=== PATIENT | female | born 1950 | race Caucasian/White ===

== ENCOUNTER 2019-08-12 18:23 | Observation (INO) | payer MEDICARE, SELFPAY ==
[2019-08-12] VITALS (8 sets, daily range): BP systolic 91–140; BP diastolic 58–89; PULSE 59–85; RESP 14–18; TEMP 36.7–37.1; O2SAT 94–98; BMI 27.4
--- NOTE | 2019-08-12 18:34 | ED_ITS ---
Entered by Rosetta Heck, acting as scribe for Melanie Valle MD, [place] Aug 12, 2019 18:23 HPI - Weakness General: Chief complaint: Weakness Stated complaint: DIZZINESS/ WEAKNESS Time Seen by Provider: 08/12/19 18:34 Source: patient, EMS and RN notes reviewed Mode of arrival: EMS Limitations: no limitations History of Present Illness: HPI Narrative: 69 yo female presents to ED with complaints of sudden onset weakness. The patient states this began about 1400 this afternoon. She said she had sudden onset dizziness, weakness, difficulty breathing, a headache that encompasses her head (not severe but constant), and L sided rib pain (she said it feels like a spasm). She said she was working on a [employer] when the page became totally white and she became lightheaded. She said she hadn't ate lunch so she thought maybe her symptoms were do to that so she decided to eat. She said she was tippy and everything was still white so she called her friend for help and she thought she better feed the horses and the whole time she was doing this she felt like she was floating and she fought passing out, saying it was hard to stay upright. She finally made it back to her house and just sat on the floor, waiting for her friend. She said she called her friend because she just couldn't think well enough to call the ambulance. She said if she were to sit up at this time, she would fall over because she is lightheaded and everything is too white. She said lights and sounds increase her head pain. The patient has a slight droop on the R side of her face. Complaint: generalized weakness and difficulty walking Onset (ago): hour(s) (4.75 (at 1400)) Duration: constant Associated symptoms: Reports chest pain; Denies chills, dysuria, fever(s), nausea or vomiting Review of Systems General: Reports: 10 or more systems reviewed and unremarkable except in HPI and below Const: Denies: fever, chills or body aches Eyes: Reports: blind spots; Denies: blurry vision ENMT: Denies: throat pain, enlarged tonsils, painful swallowing, hoarseness, mouth pain or swelling of lips/tongue Card: Reports: chest pain; Denies: palpitations, irregular heart rhythm, edema or swelling of feet/ankles Resp: Denies: productive cough or non-productive cough GI: Denies: abdominal pain, nausea or vomiting : Denies: flank pain, difficulty urinating, painful urination, urinary frequency, urinary urgency or urinary hesitancy Musc: Reports: extremity pain (left shoulder), joint pain (left shoulder) and limited range of motion; Denies: neck pain, back pain or extremity swelling Skin/Breast: Denies: rash, itching or redness Neuro: Denies: numbness in extremities Endo: Denies: excessive urination, excessive thirst or tired all the time PFSH ED PFSH: Statuses (acute, chronic, etc) shown below reflect problem list status as previously entered and may not be historically accurate Medical History (Updated 08/12/19 @ 21:36 by Melanie Valle MD, [place]) Cataract (Acute) Dizziness (Acute) Glaucoma (Acute) Surgical History (Updated 08/12/19 @ 21:28 by Tod Ashton MD) History of cataract surgery (Acute) Family History (Updated 08/12/19 @ 21:29 by Tod Ashton MD) Denies family history of CAD (coronary artery disease) Chronic kidney disease (CKD) Anesthesia complication Bleeding disorder Cancer Social History Smoking and tobacco status: never smoked Alcohol intake: never Substance/Drug Use: never Lives independently: Yes Housing: House Physical Exam Const: COMMON NORMALS: no apparent distress, average body habitus, oriented x3, no limitations, healthy appearing, alert and well nourished HENMT: COMMON NORMALS: normocephalic, head/scalp atraumatic and moist oral mucous membranes HEAD & SCALP: normocephalic and atraumatic Eye: COMMON NORMALS: PERRL, EOMs intact bilaterally, conjunctivae normal and no scleral icterus CONJUNCTIVA: Yes conjunctivae normal PUPIL: Yes PERRL Neck/C-Spine: COMMON NORMALS: full ROM, supple, no meningeal signs, no JVD and no carotid bruits Chest: COMMONS NORMALS: inspection of chest normal and palpation of chest normal Resp: COMMON NORMALS: normal respiratory effort, no retractions, no use of accessory muscles, clear to auscultation bilaterally and percussion normal AUSCULTATION: clear to auscultation bilaterally PERCUSSION: percussion normal Cardio: COMMON NORMALS: no JVD, regular rate, regular rhythm, S1 normal heart sound, S2 normal heart sound, no gallops, no clicks, no murmurs, no rub and peripheral pulses 2+ throughout RATE: regular rate RHYTHM: regular rhythm HEART SOUNDS: S1 normal and S2 normal PERIPHERAL PULSES: pulses 2+ throughout GI: COMMON NORMALS: normal to inspection, nondistended, normoactive bowel sounds, soft to palpation, non-tender, no hepatosplenomegaly, no masses and no bruits PALPATION: Yes soft and Yes no hepatosplenomegaly : COMMON NORMALS: Yes no CVA tenderness BLADDER/KIDNEY EXAM: Yes no CVA tenderness Back/Pelvis: COMMON NORMALS: no CVA tenderness Extremity: COMMON NORMALS: normal to inspection, full ROM, normal capillary refill, no calf tenderness and no pedal edema Neuro: COMMON NORMALS: oriented x3 SENSORIUM/ORIENTATION: Yes alert MENINGEAL SIGNS: Yes no meningeal signs OTHER: NIH 1 Skin: COMMON NORMALS: no rashes or lesions noted, no wounds, skin turgor normal, no jaundice, no petechiae and no mottling GENERAL SKIN EXAM: no rashes or lesions noted and turgor normal Course Consultations: Consultation #1: Neurologist at [facility]. Admit patient for stroke work-up. Time: 19:43 Vital Signs: Vital signs: Vital Signs Temperature 98.2 F 08/12/19 18:26 Pulse Rate 71 08/12/19 20:45 Respiratory Rate 14 08/12/19 20:45 Blood Pressure 118/73 08/12/19 20:45 Pulse Oximetry 98 08/12/19 20:45 MDM - Weakness MDM Narrative: Medical decision making narrative: 69-year-old female patient who presents to the emergency department with complaints of weakness. Symptoms started with a sudden onset about 2 PM this afternoon. By the time she arrived she was out of the window for TPA. NIH scale was low at 1. She did have difficulty walking due to probably dizziness or possibly ataxia. Gait not tested because of these. After discussion with the neurologist it was advised that the patient be kept for stroke work-up. She is therefore admitted for stroke work-up. Medical Records: Attestation: I reviewed the patient's medical records. Lab Data: Attestation: I reviewed the patient's lab results. Labs: Lab Results 08/12/19 08/12/19 08/12/19 Range/Units 17:20 17:20 17:20 WBC 4.9 (4.0-10.0) 10^3/ uL RBC 5.04 (4.1-5.3) 10^6/u L Hgb 14.3 (11.5-15.3) g/dL Hct 42.9 (37.0-47.0) % MCV 85.1 (81-99) fL MCH 28.4 (28.0-34.0) pg MCHC 33.3 (30.0-36.0) g/dL RDW 12.4 (12.1-15.1) % Plt Count 195 (130-400) 10^3/c mm MPV 12.2 H (7.4-10.4) fL Neut % (Auto) 59.2 % Lymph % (Auto) 31.6 % Carolina % (Auto) 5.7 % Eos % (Auto) 2.5 % Baso % (Auto) 0.8 % Neut # (Auto) 2.9 (1.8-7.7) 10^3/u L Lymph # (Auto) 1.5 (0.8-4.8) 10^3/u L [place] # (Auto) 0.3 (0.2-0.9) 10^3/u L Eos # (Auto) 0.1 (0.0-0.8) 10^3/u L Baso # (Auto) 0.0 (0.0-0.1) 10^3/u L Nucleated RBC % (a uto) 0 % Nucleated RBCs # 0.0 /100WBC D-Dimer <= 0.27 (0-0.59) ug/mIFE U Sodium 140 (136-145) mmol/L Potassium 3.8 (3.5-5.1) mmol/L Chloride 102 (98-107) mmol/L Carbon Dioxide 24 (22-29) mmol/L Anion Gap 17.8 (5-19) BUN 16 (8-23) mg/dL Creatinine 1.3 H (0.5-0.9) mg/dL GFR Calculation 40.6 L (90-130) mL/min Glucose 194 H (74-106) mg/dL POC Glucose (70-110) mg/dL Calcium 10.3 (8.5-10.5) mg/dL Total Bilirubin 0.4 (0.15-1.2) mg/dL AST 24 (0-32) U/L ALT 32 (0-33) U/L Alkaline Phosphata se 105 (35-105) IU/L Troponin T Baselin e (0-10) ng/mL Troponin T 120 Min thania (0-10) ng/mL Total Protein 7.6 (6.6-8.7) g/dL Albumin 4.7 (3.5-5.2) g/dL Globulin 2.9 (1.3-4.6) g/dL 08/12/19 08/12/19 08/12/19 Range/Units 17:20 19:02 20:50 WBC (4.0-10.0) 10^3/ uL RBC (4.1-5.3) 10^6/u L Hgb (11.5-15.3) g/dL Hct (37.0-47.0) % MCV (81-99) fL MCH (28.0-34.0) pg MCHC (30.0-36.0) g/dL RDW (12.1-15.1) % Plt Count (130-400) 10^3/c mm MPV (7.4-10.4) fL Neut % (Auto) % Lymph % (Auto) % Carolina % (Auto) % Eos % (Auto) % Baso % (Auto) % Neut # (Auto) (1.8-7.7) 10^3/u L Lymph # (Auto) (0.8-4.8) 10^3/u L [place] # (Auto) (0.2-0.9) 10^3/u L Eos # (Auto) (0.0-0.8) 10^3/u L Baso # (Auto) (0.0-0.1) 10^3/u L Nucleated RBC % (a uto) % Nucleated RBCs # /100WBC D-Dimer (0-0.59) ug/mIFE U Sodium (136-145) mmol/L Potassium (3.5-5.1) mmol/L Chloride (98-107) mmol/L Carbon Dioxide (22-29) mmol/L Anion Gap (5-19) BUN (8-23) mg/dL Creatinine (0.5-0.9) mg/dL GFR Calculation (90-130) mL/min Glucose (74-106) mg/dL POC Glucose 114 (70-110) mg/dL Calcium (8.5-10.5) mg/dL Total Bilirubin (0.15-1.2) mg/dL AST (0-32) U/L ALT (0-33) U/L Alkaline Phosphata se (35-105) IU/L Troponin T Baselin e 9 (0-10) ng/mL Troponin T 120 Min thania 7.84 (0-10) ng/mL Total Protein (6.6-8.7) g/dL Albumin (3.5-5.2) g/dL Globulin (1.3-4.6) g/dL Imaging Data^: CT Head: Radiologist's impression: [place] [address] CT Scan Report Signed Patient: MAAME REES Unit #: [id number] : 1950 Age/Sex: 69 / F ADM Date: 08/12/19 Loc: ER Room/Bed: Attending Dr: Ordering Provider/Ordering MD: Melanie Valle MD, [place] Date of Service: 08/12/19 Procedure(s): CT head wo con* [id number] Accession Number(s): [id number] Report Number: [id number] PROCEDURE INFORMATION: Exam: CT Head Without Contrast Exam date and time: 08/12/2019 7:08 PM Age: 69 years old Clinical indication: Dizziness TECHNIQUE: Imaging protocol: Computed tomography of the head without contrast. Total DLP: 835.73 mGy-cm Radiation optimization: All CT scans at this facility use at least one of these dose optimization techniques: automated exposure control; mA and/or kV adjustment per patient size (includes targeted exams where dose is matched to clinical indication); or iterative reconstruction. Other technique: STROKE PROTOCOL was implemented. COMPARISON: No relevant prior studies available. FINDINGS: Brain: Mild volume loss and white matter disease are identified. There is no acute infarct or edema. No hemorrhage. Ventricles: Normal. No ventriculomegaly. Bones/joints: Unremarkable. No acute fracture. Sinuses: Visualized sinuses are unremarkable. No fluid levels. Mastoid air cells: Visualized mastoid air cells are well aerated. Soft tissues: Unremarkable. CT/CT head wo con* [id number] IMPRESSION: There are no acute concerning abnormalities. ASSESSMENT: ASPECTS ([place] Stroke Program Early CT Score) is 10 THIS REPORT CONTAINS FINDINGS THAT MAY BE CRITICAL TO PATIENT CARE. The findings were verbally communicated via telephone conference with MELANIE VALLE at 7:40 PM DISCHARGING MACHINE OPERATOR on 08/12/2019. The findings were acknowledged and understood. Radiation Dose CTDIVOL = (mGy): DLP = 835.73 (mGy-cm) Dictated By: Radha Lee MD Signed By: Radha Lee MD Signed Date/Time: 08/12/191940 DD/ EKG Data^: EKG 1: Attestation: I personally reviewed and interpreted this EKG as follows: EKG interpretation date: 08/12/19 EKG interpretation time: 19:07 Prior EKG tracings: not available for review Interpretation: Normal sinus rhythm. Heart rate 75. No ST segment changes. Normal axis. EKG 2: Attestation: I personally reviewed and interpreted this EKG as follows: EKG interpretation date: 08/12/19 EKG interpretation time: 21:21 Prior EKG tracings: available for review Interpretation: Normal sinus rhythm. Heart rate 76. Normal axis. No ST changes. Discharge Plan Discharge Patient Disposition: Placed in Observation Admit Provider: Tod Ashton Clinical Impression: TIA (transient ischemic attack) Condition: Stable Coding Level of Care Code ED Representative Personal Service for Chg Fwd Exam Problem Focused The documentation recorded by the Maria R machado Valerie R, accurately reflects the service I personally performed and the decisions made by Jazmyn tidwell Adegoke I, MD, [place] Aug 12, 2019 18:23
--- NOTE | 2019-08-12 18:38 | CTR_ITS ---
PROCEDURE INFORMATION: Exam: CT Head Without Contrast Exam date and time: 08/12/2019 7:08 PM Age: 69 years old Clinical indication: Dizziness TECHNIQUE: Imaging protocol: Computed tomography of the head without contrast. Total DLP: 835.73 mGy-cm Radiation optimization: All CT scans at this facility use at least one of these dose optimization techniques: automated exposure control; mA and/or kV adjustment per patient size (includes targeted exams where dose is matched to clinical indication); or iterative reconstruction. Other technique: STROKE PROTOCOL was implemented. COMPARISON: No relevant prior studies available. FINDINGS: Brain: Mild volume loss and white matter disease are identified. There is no acute infarct or edema. No hemorrhage. Ventricles: Normal. No ventriculomegaly. Bones/joints: Unremarkable. No acute fracture. Sinuses: Visualized sinuses are unremarkable. No fluid levels. Mastoid air cells: Visualized mastoid air cells are well aerated. Soft tissues: Unremarkable. CT/CT head wo con* [id number] IMPRESSION: There are no acute concerning abnormalities. ASSESSMENT: ASPECTS ([place] Stroke Program Early CT Score) is 10 THIS REPORT CONTAINS FINDINGS THAT MAY BE CRITICAL TO PATIENT CARE. The findings were verbally communicated via telephone conference with BOOM VALLE at 7:40 PM CIRCUIT BOARD INSPECTOR on 08/12/2019. The findings were acknowledged and understood. Radiation Dose CTDIVOL = (mGy): DLP = 835.73 (mGy-cm)
--- NOTE | 2019-08-12 18:46 | ECG_ITS ---
Measurements Intervals [place] Rate: 75 P: 60 [place]: 164 QRS: 65 QRSD: 94 T: 40 QT: 387 QTc: 433 SINUS RHYTHM NONSPECIFIC T-WAVE ABNORMALITY No previous ECG available for comparison Electronically Signed On 08-13-2019 15:53:04 OPERATIONS SCHEDULER by Philip Lincoln M.D. [email or web address]
--- NOTE | 2019-08-12 19:02 | PC.NURSE ---
blood glucose 114
[2019-08-12 19:05] LABS: Glucose Point of Care 114 mg/dL (70-110)
[2019-08-12 19:06] LABS: Basophils % 0.8 %; Eosinophils # 0.1 10^3/uL (0.0-0.8); Eosinophils % 2.5 %; Hematocrit 42.9 % (37.0-47.0); Hemoglobin 14.3 g/dL (11.5-15.3); Lymphocytes # 1.5 10^3/uL (0.8-4.8); Lymphocytes % 31.6 %; Mean Corpuscular HGB Conc 33.3 g/dL (30.0-36.0); Mean Corpuscular Hemoglobin 28.4 pg (28.0-34.0); Mean Corpuscular Volume 85.1 fL (81-99); Mean Platelet Volume 12.2 fL (7.4-10.4); Monocytes # 0.3 10^3/uL (0.2-0.9); Monocytes % 5.7 %; Neutrophils # 2.9 10^3/uL (1.8-7.7); Neutrophils % 59.2 %; Nucleated Red Blood Cells % 0 %; Platelet Count 195 10^3/cmm (130-400); Red Blood Count 5.04 10^6/uL (4.1-5.3); Red Cell Distribution Width 12.4 % (12.1-15.1); White Blood Count 4.9 10^3/uL (4.0-10.0)
--- NOTE | 2019-08-12 19:10 | PC.NURSE ---
Report received from NICOL Avila and care transferred to NICOL Rubin
--- NOTE | 2019-08-12 19:24 | PC.NURSE ---
EKG done at 1907 and shown to ER doctor
[2019-08-12 19:30] LABS: Alanine Aminotransferase 32 U/L (0-33); Albumin Level 4.7 g/dL (3.5-5.2); Alkaline Phosphatase 105 IU/L (35-105); Anion Gap 17.8 (5-19); Aspartate Amino Transferase 24 U/L (0-32); Blood Urea Nitrogen 16 mg/dL (8-23); Calcium 10.3 mg/dL (8.5-10.5); Carbon Dioxide 24 mmol/L (22-29); Chloride 102 mmol/L (98-107); Globulin 2.9 g/dL (1.3-4.6); Glomerular Filtration Rate 40.6 mL/min (90-130); Glucose 194 mg/dL (74-106); Potassium 3.8 mmol/L (3.5-5.1); Sodium 140 mmol/L (136-145); Total Bilirubin 0.4 mg/dL (0.15-1.2); Total Protein 7.6 g/dL (6.6-8.7)
[2019-08-12 19:32] LABS: Troponin(5th) Baseline 9 ng/mL (0-10)
--- NOTE | 2019-08-12 20:40 | CTR_ITS ---
PROCEDURE INFORMATION: Exam: CT Angiography Head With Contrast Exam date and time: 08/12/2019 8:45 PM Age: 69 years old Clinical indication: Pain; Dizziness and giddiness; Headache; Additional info: Stroke TECHNIQUE: Imaging protocol: Computed tomography angiography of the head with intravenous contrast. 3D rendering: MIP and/or 3D reconstructed images were created by the technologist. Total DLP: 2321.94 mGy-cm Radiation optimization: All CT scans at this facility use at least one of these dose optimization techniques: automated exposure control; mA and/or kV adjustment per patient size (includes targeted exams where dose is matched to clinical indication); or iterative reconstruction. Contrast material: VISI; Contrast volume: 95 ml; Contrast route: 20G; COMPARISON: CT head wo con* [id number] 08/12/2019 7:23 PM FINDINGS: Right internal carotid artery: Unremarkable. Intracranial segment is patent with no significant stenosis. No aneurysm. Right anterior cerebral artery: Unremarkable. No occlusion or significant stenosis. No aneurysm. Right middle cerebral artery: Unremarkable. No occlusion or significant stenosis. No aneurysm. Right posterior cerebral artery: Unremarkable. No occlusion or significant stenosis. No aneurysm. Right vertebral artery: Unremarkable. No occlusion or significant stenosis. No aneurysm. Left internal carotid artery: Unremarkable. Intracranial segment is patent with no significant stenosis. No aneurysm. Left anterior cerebral artery: Unremarkable. No occlusion or significant stenosis. No aneurysm. Left middle cerebral artery: Unremarkable. No occlusion or significant stenosis. No aneurysm. Left posterior cerebral artery: Unremarkable. No occlusion or significant stenosis. No aneurysm. Left vertebral artery: Unremarkable. No occlusion or significant stenosis. No aneurysm. Basilar artery: Unremarkable. No occlusion or significant stenosis. No aneurysm. IMPRESSION: No acute findings. PROCEDURE INFORMATION: Exam: CT Angiography Neck With Contrast Exam date and time: 08/12/2019 8:45 PM Age: 69 years old Clinical indication: Pain; Dizziness and giddiness; Headache; Additional info: Stroke TECHNIQUE: Imaging protocol: Computed tomography angiography of the neck with intravenous contrast. 3D rendering: MIP and/or 3D reconstructed images were created by the technologist. Total DLP: 2321.94 mGy-cm Radiation optimization: All CT scans at this facility use at least one of these dose optimization techniques: automated exposure control; mA and/or kV adjustment per patient size (includes targeted exams where dose is matched to clinical indication); or iterative reconstruction. Contrast material: VISI; Contrast volume: 95 ml; Contrast route: 20G; COMPARISON: CT head wo con* [id number] 08/12/2019 7:23 PM FINDINGS: VASCULATURE: Right common carotid artery: Unremarkable. No stenosis. No dissection or occlusion. Right internal carotid artery: Unremarkable extracranial segment. No stenosis. No dissection or occlusion. Right external carotid artery: Unremarkable. No occlusion or stenosis of the origin. Right vertebral artery: Unremarkable. No stenosis. No dissection or occlusion. Left common carotid artery: Unremarkable. No stenosis. No dissection or occlusion. Left internal carotid artery: Unremarkable extracranial segment. No stenosis. No dissection or occlusion. Left external carotid artery: Unremarkable. No occlusion or stenosis of the origin. Left vertebral artery: Unremarkable. No stenosis. No dissection or occlusion. NECK: Thyroid: Multiple thyroid nodules with the largest measuring 9 mm in the right thyroid lobe. Bones/joints: No acute fracture. Soft tissues: Normal. No significant soft tissue swelling. CT/CT angio headneck* [id number] IMPRESSION: No acute abnormality. COMMENT: 1. Reference per NASCET criteria for degree of stenosis: Mild: less than 50% stenosis. Moderate: 50-69% stenosis. Severe: 70-94% stenosis. Near occlusion: 95-99% stenosis. 2. Consistent with the [employer]'s Incidental Findings Committee white paper (J Am Sebastián Radiol 2015): In patients aged 35 years and older with an incidental thyroid nodule equal to or greater than 1.[address], MRI or extrathyroidal US, further evaluation with dedicated thyroid US is recommended for patients with normal life expectancy and without comorbidities. For smaller nodules without suspicious features, no further evaluation or follow up is recommended. Radiation Dose CTDIVOL = (mGy): DLP = 2321.94~2321.94 (mGy-cm)
[2019-08-12] MEDS: diphenhydrAMINE 50 mg/mL SDV 1mL 25 MG IVP (20:43)
--- NOTE | 2019-08-12 20:43 | P.HP_ITS ---
Providers/Chief Complaint Chief Complaint: TIA History of Present Illness MAAME REES is a 69 year old female who does not have any pertinent past medical history other than cataract and glaucoma came in with chief complaint of dizziness. Patient has lived a healthy life, she does not have any past medical history of hypertension, diabetes, stroke, coronary disease, she lives independently, she moved from [place] to [place], she does not have any other family members, she lives alone and takes care of her 3 horses. She was at her usual health until today around 2 PM she started experiencing white blotches in her visual field when she was doing sudoku. She started feeling diz zy at that time, she ate a sandwich which did not relieve her symptoms then she started feeling weak in her arm she got out to take her for horses but she had no strength hence she called her friends who brought her to the hospital. She did not notice any facial droop, drooling of saliva, confusion, seizures, bowel or urinary incontinence, chest pain, palpitations but she is endorsing to feeling dizzy on changing position, she is also experiencing headache around her occipital area which she is describing as a weird feeling. Patient is stating that last summer she was put on Holter monitor because of her dizziness, Holter monitor after 48 hours did not show any arrhythmia. She has been having these dizzy spells pretty frequently. In the ER code stroke was called, she was not a TPA candidate, CT head was negative for hemorrhagic stroke, NIH score was 1 for mild right-sided facial droop By the time I saw her her heart rate was 70, sinus rhythm, saturating well on room air, NIH 0 She got out of bed and went to the bathroom, she was taking small steps but no weakness of her legs was noticed, I did not notice any facial droop I ordered CTA head and neck to rule out any ischemic etiology because of her active headache and dizziness Review of Systems Const: Reports: fatigue and malaise; Denies: fever, chills or body aches Eyes: Reports: change in vision, blurry vision, floaters and seeing flashes; Denies: eye discharge or dry eyes ENMT: Denies: throat pain or uvular edema Card: Denies: chest pain or palpitations Resp: Denies: shortness of breath GI: Denies: abdominal pain : Denies: flank pain Musc: Denies: neck pain Skin/Breast: Denies: rash Neuro: Reports: headache, weakness in extremities, dizziness and vertigo; Denies: lack of coordination, difficulty walking, frequent falls, confusion, slurred speech, seizure-like activity or restless legs Psych: Denies: anxiety Endo: Denies: excessive urination Samy/Lymph: Denies: easy bruising All/Imm: Denies: hives PFSH Acute PFSH: Statuses (acute, chronic, etc) shown below reflect problem list status as previously entered and may not be historically accurate Medical History (Updated 08/12/19 @ 21:32 by Tod Ashton MD) Cataract (Acute) Dizziness (Acute) Glaucoma (Acute) Surgical History (Updated 08/12/19 @ 21:28 by Tod Ashton MD) History of cataract surgery (Acute) Family History (Updated 08/12/19 @ 21:29 by Tod Ashton MD) Denies family history of CAD (coronary artery disease) Chronic kidney disease (CKD) Anesthesia complication Bleeding disorder Cancer Social History (Updated 08/12/19 @ 21:29 by Tod Ashton MD) Smoking and tobacco status: never smoked Alcohol intake: never Substance/Drug Use: never Lives independently: Yes Housing: House Vitals/I&O/Wt Last Vital Signs Temp 98.2 F 08/12/19 18:26 Pulse 74 08/12/19 19:30 Resp 14 08/12/19 19:30 BP 117/65 08/12/19 19:30 Pulse Ox 98 08/12/19 19:30 Weight last 48 hrs Weight 77.111 kg Physical Exam Narrative: EXAM NARRATIVE: Pleasant elderly female Seems a bit dehydrated Neurologically NIH score is 0, strength 4/ 5 lower extremities with hip flexion and extension, dorsi flexion and plantar flexion, Cerebellar signs negative, Reflexes equivocal Motor strength in arms 3/5, bilaterally She was able to get out of bed and walk to the bathroom, she was taking steps carefully Bilateral hyperemic conjunctivo- S1, S2 no murmur or JVD noted Lungs are clear to auscultation Abdomen soft nontender nondistended Appropriate mood and affect Skin does not show any sign ischemia gangrene ulcer Data : 08/12/19 17:20 08/12/19 17:20 A&P Assessment and plan (1) Generalized weakness: Status: Acute Code(s): R53.1 - Weakness (2) Pre-syncope: Status: Acute Code(s): R55 - Syncope and collapse (3) Blurry vision: Status: Acute Code(s): H53.8 - Other visual disturbances Additional A&P Information Acute onset generalized weakness with dizziness and visual changes Patient does not have any history of carotid artery disease, A. fib, diabetes or hypertension CT head negative for hemorrhagic stroke Not a candidate of TPA I will get CTA head and neck on stat basis because of her persistent dizziness and headache, monitor heart rhythm on telemetry I would start her on aspirin and Plavix for at least 21 days with high-dose statins We will check echo, TSH, lipid profile and A1c She will need physical therapy to rule out BPPV She lives alone and does not have any family members, only contact information is of her friends who are assisting her with her current situation She has a history of cataract and glaucoma, does not use any ophthalmic drops She might need ophthalmology consult in a.m. She sees Dr. Bernal DVT prophylaxis: Lovenox GI prophylaxis: Not indicated Full code She prefers to go to a [place] [facility] [place] if that is the discharge disposition plan Attestations Medical Necessity Statement*: Anticipating her stay to be less than 2 midnights for stroke work-up, she might need subacute rehab Time Spent in Patient Care: (>than 50% of time spent in counselling and/or direct pt care on unit) . 60 Coding Level of Care Code Acute Renal Medicine Specialist for Lainey Castillo Diagnoses Generalized weakness R53.1 Pre-syncope R55 Blurry vision H53.8
[2019-08-12] MEDS: metoclopramide 5 mg/mL SDV 2 mL 10 MG IVP (20:44)
--- NOTE | 2019-08-12 20:46 | ECG_ITS ---
Measurements Intervals [place] Rate: 76 P: 55 MN: 166 QRS: 60 QRSD: 101 T: 45 QT: 409 QTc: 461 SINUS RHYTHM No previous ECG available for comparison Electronically Signed On 08-13-2019 15:57:11 BANJO REPAIRER by Philip Lincoln M.D. [id number]
[2019-08-12 20:48] LABS: D Dimer <= 0.27 ug/mIFEU (0-0.59)
--- NOTE | 2019-08-12 21:03 | PC.NURSE ---
Patient ambulated to bathroom with 1 nurse assist. Patient was able to walk on own with minimal assistance
[2019-08-12] MEDS: iodixanol 320 mg/mL 100mL Btl IV (21:09)
--- NOTE | 2019-08-12 21:20 | PC.NURSE ---
EKG done at 0917 and shown to ER doctor
[2019-08-12 21:27] LABS: Troponin 5 2HR 7.84 ng/mL (0-10)
[2019-08-12 21:31] LABS: Troponin 5 2HR Delta -1.16 ABS# (0-10)
[2019-08-12 21:35] LABS: Add Urine Microscopic? YES; Bilirubin Urine Neg (NEGATIVE); Blood Urine Neg (Negative); Glucose Urine UA Norm (Normal); Ketones Urine Negative (Negative); Leukocyte Esterase Urine Negative (Negative); Nitrate Urine Positive (Negative); Protein Urine Neg (Negative); Urine Appearance Hazy (CLEAR); Urine Color Yellow (Yellow); Urobilinogen Urine Norm (Negative); pH Urine 7 (5-7)
[2019-08-12 21:36] LABS: Add Urine Culture? Yes; Bacteria Urine 4+; Squamous Epithelial Cell Urine 0-4 (0-5); WBC Urine 0-4 /hpf (0-5)
[2019-08-12] MEDS: sodium chloride 0.9% 1,000 ML 30 ML IV (22:23)
[2019-08-12] MEDS: enoxaparin 40 mg/0.4 mL Syringe SUBCUT (22:24)
[2019-08-12] MEDS: atorvastatin 40 mg Tablet 80 MG PO (22:24)
[2019-08-12 22:41] LABS: Chol HDL Ratio 3.95 mg/dL (0.0-4.40); Cholesterol 217 mg/dL (0-200); HDL Cholesterol 55 mg/dL (60-100); LDL Cholesterol Calculated 145 mg/dL (50-129); LDL HDL Ratio 2.64 RATIO (0.00-3.22); Thyroid Stimulating Hormone 4.97 uIU/mL (0.27-4.20); Triglycerides 86 mg/dL (0-150)
[2019-08-12 22:47] LABS: Estmated Average Glucose 120; Hemoglobin A1C 5.8 % (4.0-6.0)
--- NOTE | 2019-08-12 22:54 | PC.NURSE ---
Pt alert and oriented no defiects note pt friend at bs reports no changes at this time. Neuro check within normal limits.
[2019-08-13 00:20] LABS: Free T4 Free Thyroxine 1.14 ng/dL (0.82-1.77)
--- NOTE | 2019-08-13 00:46 | ECG_ITS ---
Measurements Intervals [place] Rate: 62 P: 49 FL: 171 QRS: 53 QRSD: 101 T: 33 QT: 432 QTc: 439 SINUS RHYTHM LOW QRS VOLTAGE IN PRECORDIAL LEADS [QRS DEFLECTION < 1.0 mV IN CHEST LEADS] No previous ECG available for comparison Electronically Signed On 08-13-2019 15:57:31 REFUSE COLLECTOR by Philip Lincoln M.D. [id number]
[2019-08-13 01:43] VITALS: BP 98/60
[2019-08-13 04:00] VITALS: BP 99/63; PULSE 65; RESP 18; TEMP 36.7; O2SAT 97
[2019-08-13 04:12] LABS: Basophils % 0.7 %; Eosinophils # 0.1 10^3/uL (0.0-0.8); Eosinophils % 1.8 %; Hematocrit 39.6 % (37.0-47.0); Hemoglobin 12.8 g/dL (11.5-15.3); Lymphocytes # 1.5 10^3/uL (0.8-4.8); Lymphocytes % 32.2 %; Mean Corpuscular HGB Conc 32.3 g/dL (30.0-36.0); Mean Corpuscular Hemoglobin 29.2 pg (28.0-34.0); Mean Corpuscular Volume 90.2 fL (81-99); Monocytes # 0.3 10^3/uL (0.2-0.9); Monocytes % 5.8 %; Neutrophils # 2.7 10^3/uL (1.8-7.7); Neutrophils % 59.3 %; Nucleated Red Blood Cells % 0 %; Platelet Count 167 10^3/cmm (130-400); Red Blood Count 4.39 10^6/uL (4.1-5.3); Red Cell Distribution Width 12.4 % (12.1-15.1); White Blood Count 4.5 10^3/uL (4.0-10.0)
[2019-08-13 04:40] LABS: Blood Urea Nitrogen 15 mg/dL (8-23); Calcium 9.4 mg/dL (8.5-10.5); Carbon Dioxide 25 mmol/L (22-29); Chloride 108 mmol/L (98-107); Glomerular Filtration Rate 44.5 mL/min (90-130); Glucose 99 mg/dL (74-106); Osmolality Calculated 292 mOsm/kg (285-295); Sodium 143 mmol/L (136-145)
[2019-08-13 08:00] VITALS: BP 118/62; PULSE 63; RESP 16; TEMP 36.4
[2019-08-13] MEDS: acetaminophen 325 mg Tablet 650 MG PO (08:50)
[2019-08-13] MEDS: aspirin 81 mg EC Tablet PO (08:51)
[2019-08-13] MEDS: clopidogrel 75 mg Tablet PO (08:51)
[2019-08-13 10:00] VITALS: BP 122/68; PULSE 79; RESP 18; TEMP 36.6
[2019-08-13 12:00] VITALS: BP 114/68; BP 116/74; PULSE 71; RESP 16; TEMP 36.7; TEMP 36.8
--- NOTE | 2019-08-13 12:47 | PC.CHAP ---
Pastoral Care Encounter/Spiritual Assessment Type of Contact [] Declined energy specialist visit [] Patient/Family/Request visit [] Outpatient visit [] Follow-up visit [] Physician referral [] Code/Alert []x Routine visit [] Staff referral [] Actively dying [] Patient sleeping [] Family support [] [] Out of room [] Palliative care [] [] Receiving care in room [] Pre-surgical visit [] Trauma [] Long length of stay [] ICU visit [] Other: Relational/Emotional Strength [x]x Patient feels connected with others/family/visitors/staff [] Distress [] Loneliness/isolation [] Abandonment Spirituality of Patient [x] Person of [place] [x] Attends Samaritan of their [place] [] Believes in Prayer [] Reads Bible or Cheondoism materials [] There are Spiritual issues to be addressed 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 [x] Prayer [x] Active listening [x] Non-anxious presence [] Spiritual/emotional support [] Crisis/trauma care [] Spiritual counseling [] Bereavement support [] Provided bereavement packet [] Provided Bible/devotional materials [] Provided toy/stuffed animal, coloring book to patient or family member [] Provided Communion [] Anointing/[place] [] Salvation [x] Completed spiritual assessment [] Other: Impact on Illness or Injury [] Angry [] Fearful [x] Anxious [] Often cries [] Exhaustion [] Unable to work [] Unable to attend evangelical [] Unable to walk/stand [] Unable to read [] Unable to drive [] Unable to eat/drink [] Unable to sleep [] Unable to be with family [] Patient intubated [] Other: Summary patient not feeling wellon visitor Time spent with patient
--- NOTE | 2019-08-13 12:57 | PC.CHAP ---
Pastoral Care Encounter/Spiritual Assessment Type of Contact [] Declined loan specialist visit [] Patient/Family/Request visit [] Outpatient visit [] Follow-up visit [] Physician referral [] Code/Alert [x] Routine visit [] Staff referral [] Actively dying [] Patient sleeping [] Family support [] [] Out of room [] Palliative care [] [] Receiving care in room [] Pre-surgical visit [] Trauma [] Long length of stay [] ICU visit [] Other: Relational/Emotional Strength [] Patient feels connected with others/family/visitors/staff [] Distress [] Loneliness/isolation [] Abandonment Spirituality of Patient [x] Person of [place] [x] Attends Mandaen of their [place] [x] Believes in Prayer [] Reads Bible or Roman Catholic materials [] There are Spiritual issues to be addressed 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 [x] Prayer [x] Active listening x[] Non-anxious presence [x] Spiritual/emotional support [] Crisis/trauma care [] Spiritual counseling [] Bereavement support [] Provided bereavement packet [] Provided Bible/devotional materials [] Provided toy/stuffed animal, coloring book to patient or family member [] Provided Communion [] Anointing/[place] [] Salvation [x] Completed spiritual assessment [] Other: Impact on Illness or Injury [] Angry [] Fearful [] Anxious [] Often cries [] Exhaustion [] Unable to work [] Unable to attend muslim [] Unable to walk/stand [] Unable to read [] Unable to drive [] Unable to eat/drink [] Unable to sleep [] Unable to be with family [] Patient intubated [] Other: Summary patient felling much better today Time spent with patient 10 min one visitor
[2019-08-13 14:57] VITALS: BP 116/74; PULSE 71; RESP 16; TEMP 36.7
--- NOTE | 2019-08-13 15:30 | P.DS_ITS ---
Discharge Providers Date of Admission: 08/12/19 20:43 Date of Discharge: 08/13/19 Attending Provider at Admission: Tod Ashton MD Attending Provider at Discharge: Mark Painter MD Diagnoses at Discharge Discharge Diagnosis (1) Generalized weakness: Status: Acute (2) Pre-syncope: Status: Acute (3) Blurry vision: Status: Acute Reason for Visit Reason for Visit: Reason For Visit: TIA Hospital Course Discharge Summary: MAAME REES is a 69 year old female who does not have any pertinent past medical history other than cataract and glaucoma came in with chief complaint of dizziness. Patient has lived a healthy life, she does not have any past medical history of hypertension, diabetes, stroke, coronary disease, she lives independently, she moved from [place] to [place], she does not have any other family members, she lives alone and takes care of her 3 horses. She was at her usual health until today around 2 PM she started experiencing white blotches in her visual field when she was doing sudoku. She started feeling dizzy at that time, she ate a sandwich which did not relieve her symptoms then she started feeling weak in her arm she got out to take her for horses but she had no strength hence she called her friends who brought her to the hospital. She did not notice any facial droop, drooling of saliva, confusion, seizures, bowel or urinary incontinence, chest pain, palpitations but she is endorsing to feeling dizzy on changing position, she is also experiencing headache around her occipital area which she is describing as a weird feeling. Patient is stating that last summer she was put on Holter monitor because of her dizziness, Holter monitor after 48 hours did not show any arrhythmia. She has been having these dizzy spells pretty frequently. She states she did have dizzy spells with floaters in front of her eyes along with flashing lights whenever she uses her glaucoma medications which she has not been using for last 3 months. She also states that occasionally she would have dizzy spells when she is trying to look into light for trying to concentrate on looking at something. She was admitted to the hospital for a possible TIA. CT head along with CTA head and neck were done which were unremarkable other than multiple thyroid nodules. Thyroid ultrasound was done and has been recommended for her to follow-up with a repeat thyroid ultrasound in 12 months. Patient was seen by physical therapy and she did review the with them. She seemed independent as per physical therapy. Her telemetry was unremarkable and echocardiogram was done as well. Her blood work was concerning for mildly deranged TSH and lipid panel for which free T4 was added which came back normal and she has been discharged upon low-dose of statin. Patient is being discharged home in hemodynamically stable condition at baseline neurological status without having any further dizziness and has been asked to follow-up with her post tronic machine operator for further glaucoma medications. Patient has been counseled to use her glaucoma medications at least at nighttime before she goes to bed as that would prevent her from having dizziness. Physical Exam Narrative: EXAM NARRATIVE: Pleasant elderly female Neurologically NIH score is 0, strength 4/ 5 lower extremities with hip flexion and extension, dorsi flexion and plantar flexion, Cerebellar signs negative, Reflexes equivocal Motor strength in arms 3/5, bilaterally She was able to get out of bed and walk to the bathroom, she was taking steps carefully Bilateral hyperemic conjunctivo- S1, S2 no murmur or JVD noted Lungs are clear to auscultation Abdomen soft nontender nondistended Appropriate mood and affect Skin does not show any sign ischemia gangrene ulcer HENMT: THROAT: no uvular edema Discharge Data Data Completed and Pending: Completed Studies During Hospitalization Category Date Time Status CT angio headneck * [id number] Stat Cat Scan 08/12/19 20:[address] head wo con* 7 0450 Urgent Cat Scan 08/12/19 18:38 Completed US thyroid 30600 Routine Ultrasound 08/13/19 23:29 Completed Pending at discharge Category Date Time Status Urine Culture Sta t Lab 08/12/19 21:00 Received CV echo complete* [id number] Routine Ultrasound 08/13/19 22:05 Taken Labs from last 24 hours 08/13/19 08/13/19 08/13/19 03:15 03:15 00:47 WBC 4.5 RBC 4.39 Hgb 12.8 Hct 39.6 MCV 90.2 D MCH 29.2 MCHC 32.3 RDW 12.4 Plt Count 167 MPV 12.0 H Neut % (Auto) 59.3 Lymph % (Auto) 32.2 Granite % (Auto) 5.8 Eos % (Auto) 1.8 Baso % (Auto) 0.7 Neut # (Auto) 2.7 Lymph # (Auto) 1.5 Granite # (Auto) 0.3 Eos # (Auto) 0.1 Baso # (Auto) 0.0 Nucleated RBC % (a uto) 0 Nucleated RBCs # 0.0 D-Dimer Sodium 143 Potassium 4.0 Chloride 108 H Carbon Dioxide 25 Anion Gap 14.0 BUN 15 Creatinine 1.2 H GFR Calculation 44.5 L Glucose 99 POC Glucose Estimat Average Gl ucose Hemoglobin A1c Calculated Osmolal ity 292 Calcium 9.4 Total Bilirubin AST ALT Alkaline Phosphata se Troponin I 6 Hour 8.00 Troponin I Hi Sens Del -1.00 L Troponin T Baselin e Troponin T 120 Min [place] Troponin T Total Protein Albumin Globulin Triglycerides Cholesterol LDL Cholesterol, C alc HDL Cholesterol LDL/HDL Ratio Cholesterol/HDL Ra jean marie TSH Free T4 Urine Color Urine Appearance Urine pH Ur Specific Gravit y Urine Protein Urine Glucose (UA) Urine Ketones Urine Occult Blood Urine Nitrate Urine Bilirubin Urine Urobilinogen Ur Leukocyte Lindsey ase Urine RBC Urine WBC Ur Squamous Epith Cells Urine Bacteria 08/12/19 08/12/19 08/12/19 21:00 20:50 20:50 WBC RBC Hgb Hct MCV MCH MCHC RDW Plt Count MPV Neut % (Auto) Lymph % (Auto) Gran[place] % (Auto) Eos % (Auto) Baso % (Auto) Neut # (Auto) Lymph # (Auto) [place] # (Auto) Eos # (Auto) Baso # (Auto) Nucleated RBC % (a uto) Nucleated RBCs # D-Dimer Sodium Potassium Chloride Carbon Dioxide Anion Gap BUN Creatinine GFR Calculation Glucose POC Glucose Estimat Average Gl ucose Hemoglobin A1c Calculated Osmolal ity Calcium Total Bilirubin AST ALT Alkaline Phosphata se Troponin I 6 Hour Troponin I Hi Sens Del Troponin T Baselin e Troponin T 120 Min [place] Troponin T Total Protein Albumin Globulin Triglycerides 86 Cholesterol 217 H LDL Cholesterol, C alc 145 H HDL Cholesterol 55 L LDL/HDL Ratio 2.64 Cholesterol/HDL Ra jean marie 3.95 TSH 4.97 H Free T4 1.14 Urine Color Yellow Urine Appearance Hazy A Urine pH 7 Ur Specific Gravit y 1.010 Urine Protein Neg Urine Glucose (UA) Norm Urine Ketones Negative Urine Occult Blood Neg Urine Nitrate Positive H Urine Bilirubin Neg Urine Urobilinogen Norm Ur Leukocyte Lindsey ase Negative Urine RBC None Urine WBC 0-4 H Ur Squamous Epith Cells 0-4 H Urine Bacteria 4+ H 08/12/19 08/12/19 08/12/19 20:50 19:02 17:20 WBC RBC Hgb Hct MCV MCH MCHC RDW Plt Count MPV Neut % (Auto) Lymph % (Auto) [place] % (Auto) Eos % (Auto) Baso % (Auto) Neut # (Auto) Lymph # (Auto) [place] # (Auto) Eos # (Auto) Baso # (Auto) Nucleated RBC % (a uto) Nucleated RBCs # D-Dimer Sodium Potassium Chloride Carbon Dioxide Anion Gap BUN Creatinine GFR Calculation Glucose POC Glucose 114 Estimat Average Gl ucose 120 Hemoglobin A1c 5.8 Calculated Osmolal ity Calcium Total Bilirubin AST ALT Alkaline Phosphata se Troponin I 6 Hour Troponin I Hi Sens Del Troponin T Baselin e Troponin T 120 Min [place] 7.84 Delta Troponin T -1.16 L Total Protein Albumin Globulin Triglycerides Cholesterol LDL Cholesterol, C alc HDL Cholesterol LDL/HDL Ratio Cholesterol/HDL Ra jean marie TSH Free T4 Urine Color Urine Appearance Urine pH Ur Specific Gravit y Urine Protein Urine Glucose (UA) Urine Ketones Urine Occult Blood Urine Nitrate Urine Bilirubin Urine Urobilinogen Ur Leukocyte Lindsey ase Urine RBC Urine WBC Ur Squamous Epith Cells Urine Bacteria 08/12/19 08/12/19 08/12/19 17:20 17:20 17:20 WBC RBC Hgb Hct MCV MCH MCHC RDW Plt Count MPV Neut % (Auto) Lymph % (Auto) [place] % (Auto) Eos % (Auto) Baso % (Auto) Neut # (Auto) Lymph # (Auto) [place] # (Auto) Eos # (Auto) Baso # (Auto) Nucleated RBC % (a uto) Nucleated RBCs # D-Dimer <= 0.27 Sodium 140 Potassium 3.8 Chloride 102 Carbon Dioxide 24 Anion Gap 17.8 BUN 16 Creatinine 1.3 H GFR Calculation 40.6 L Glucose 194 H POC Glucose Estimat Average Gl ucose Hemoglobin A1c Calculated Osmolal ity Calcium 10.3 Total Bilirubin 0.4 AST 24 ALT 32 Alkaline Phosphata se 105 Troponin I 6 Hour Troponin I Hi Sens Del Troponin T Baselin e 9 Troponin T 120 Min [place] Troponin T Total Protein 7.6 Albumin 4.7 Globulin 2.9 Triglycerides Cholesterol LDL Cholesterol, C alc HDL Cholesterol LDL/HDL Ratio Cholesterol/HDL Ra jean marie TSH Free T4 Urine Color Urine Appearance Urine pH Ur Specific Gravit y Urine Protein Urine Glucose (UA) Urine Ketones Urine Occult Blood Urine Nitrate Urine Bilirubin Urine Urobilinogen Ur Leukocyte Lindsey ase Urine RBC Urine WBC Ur Squamous Epith Cells Urine Bacteria 08/12/19 17:20 WBC 4.9 RBC 5.04 Hgb 14.3 Hct 42.9 MCV 85.1 MCH 28.4 MCHC 33.3 RDW 12.4 Plt Count 195 MPV 12.2 H Neut % (Auto) 59.2 Lymph % (Auto) 31.6 [place] % (Auto) 5.7 Eos % (Auto) 2.5 Baso % (Auto) 0.8 Neut # (Auto) 2.9 Lymph # (Auto) 1.5 [place] # (Auto) 0.3 Eos # (Auto) 0.1 Baso # (Auto) 0.0 Nucleated RBC % (a uto) 0 Nucleated RBCs # 0.0 D-Dimer Sodium Potassium Chloride Carbon Dioxide Anion Gap BUN Creatinine GFR Calculation Glucose POC Glucose Estimat Average Gl ucose Hemoglobin A1c Calculated Osmolal ity Calcium Total Bilirubin AST ALT Alkaline Phosphata se Troponin I 6 Hour Troponin I Hi Sens Del Troponin T Baselin e Troponin T 120 Min [place] Troponin T Total Protein Albumin Globulin Triglycerides Cholesterol LDL Cholesterol, C alc HDL Cholesterol LDL/HDL Ratio Cholesterol/HDL Ra jean marie TSH Free T4 Urine Color Urine Appearance Urine pH Ur Specific Gravit y Urine Protein Urine Glucose (UA) Urine Ketones Urine Occult Blood Urine Nitrate Urine Bilirubin Urine Urobilinogen Ur Leukocyte Lindsey ase Urine RBC Urine WBC Ur Squamous Epith Cells Urine Bacteria Vitals: Last Vital Signs Temp 98.0 F 08/13/19 14:57 Pulse 71 08/13/19 14:57 Resp 16 08/13/19 14:57 BP 116/74 08/13/19 14:57 Pulse Ox 97 08/13/19 04:00 Discharge Plan Discharge Patient Disposition: Home, Self-Care Condition: Stable Prescriptions: New aspirin 81 mg Tablet,Delayed Release (Dr/Ec) 81 mg PO DAILY Qty: 30 RF: 0 atorvastatin 40 mg Tablet 40 mg PO BEDTIME Qty: 30 RF: 0 Discharge Orders: Discharge Order (Routine); Ordered 08/13/19 Ordered By: Mark Painter Referrals: Aguila Fitzgerald MD [Physician] - 1 week Discharge Diet: Cardiac Discharge Activity: Resume usual activity Discharge Attestations Time Spent in Discharge Care*: greater than 30 min Specific Discharge Activities: Specific discharge activities: educating patient and educating and/or supporting family/caregiver Status at Discharge: Cognitive status at discharge: cognitively intact , Behavioral status at discharge: cooperative , Functional status at discharge: independent ambulation Overall status at discharge: patient is back to baseline Quality Metrics Clinical Quality Measures During this hospital stay, did patient experience: Stroke Contraindication to Antithrombotic: Antithrombotic prescribed Contraindication to Anticoagulation: Treatment Delay - patient Contraindication to Statin: Statin prescribed Coding Level of Care Code Acute Audit Control Clerk for Chg Fwd Diagnoses Generalized weakness R53.1 Pre-syncope R55 Blurry vision H53.8
[2019-08-13 16:09] LABS: Free T4 Free Thyroxine 1.17 ng/dL (0.82-1.77)
--- NOTE | 2019-08-13 22:05 | USCV_ITS ---
MAAME REES Age: 69 Gender: F : 1950 Exam Date: 08/13/2019 08:58 Ordering Phys: Tod Ashton MD Technologist: Shannon Lopez Exam Location: [facility] [place]ication: CVA VS TIA BP: / HR: 77 Rhythm: Sinus Technical Quality: Adequate MEASUREMENTS (Male / Female) Normal Values 2D ECHO LV Diastolic Diameter PLAX 4.4 cm 4.2 - 5.9 / 3.9 - 5.3 cm LV Systolic Diameter PLAX 2.9 cm LV Chamber Size 3.1 cm IVS Diastolic Thickness 1.3 cm 0.6 - 1.0 / 0.6 - 0.9 cm IVS Systolic Thickness 1.0 cm LVPW Diastolic Thickness 1.1 cm 0.6 - 1.0 / 0.6 - 0.9 cm LVPW Systolic Thickness 1.4 cm RV Chamber Size 3.1 cm LVOT Diameter 2.0 cm LV Ejection Fraction 2D Teich 64.1 % LV Ejection Fraction MOD 2C 74.1 % LV Ejection Fraction 2C AL 73.3 % LA Diameter 3.6 cm LA Width 2.5 cm LA Height 4.2 cm RA Width 3.7 cm RA Height 4.0 cm Aorta at Sinotubular Diameter 3.0 cm M-MODE LV Diastolic Diameter MM 4.3 cm 4.2 - 5.9 / 3.9 - 5.3 cm LV Systolic Diameter MM 2.4 cm LV Ejection Fraction MM Teich 74.9 % IVS Diastolic Thickness MM 0.8 cm 0.6 - 1.0 / 0.6 - 0.9 cm IVS Systolic Thickness MM 1.2 cm LVPW Diastolic Thickness MM 1.1 cm 0.6 - 1.0 / 0.6 - 0.9 cm LVPW Systolic Thickness MM 1.6 cm RV Diastolic Diameter MM 2.8 cm Aortic Annulus Diameter 3.2 cm LA Ao Ratio MM 1.1 MV E Point Septal Separation 0.3 cm DOPPLER AV Peak Velocity 150.0 cm/s LVOT Peak Velocity 85.0 cm/s AV Area Cont Eq vti 2.1 cm squared AV Area Cont Eq pk 1.8 cm squared MV Area PHT 5.6 cm squared Mitral E to A Ratio 1.0 MV E' Velocity 10.0 cm/s Mitral E to MV E' Ratio 7.1 Mitral E to LV E' Lateral Ratio 7.4 Mitral E to LV E' Septal Ratio 6.8 TR Peak Velocity 185.7 cm/s TR Peak Gradient 13.8 mmHg TR Mean Velocity 147.9 cm/s TR Mean Gradient 9.2 mmHg TR Velocity Time Integral 51.1 cm TV Peak E Velocity 61.0 cm/s Right Atrial Pressure 3.0 mmHg Pulmonary Artery Systolic Pressu 16.8 mmHg PV Peak Velocity 64.0 cm/s RV Acceleration Time 0.1 s RV Ejection Time 0.3 s RV AcT/ET 0.3 FINDINGS Left Ventricle Normal left ventricular size and systolic function, EF 70 %. No regional wall motion abnormalities. Right Ventricle Normal right ventricular size and systolic function. Right Atrium Normal right atrial size. Left Atrium Normal left atrial size. Mitral Valve No gross abnormalities noted Aortic Valve No gross abnormalities noted Tricuspid Valve No gross abnormalities noted Pulmonic Valve Pulmonic valve not well visualized. Pericardium Trivial pericardial effusion. Aorta Normal aortic annulus size. CONCLUSIONS Normal left ventricular size and systolic function, EF 70 %. No regional wall motion abnormalities. Trivial pericardial effusion. There are no intracardiac masses. Normal chamber sizes. No significant stenotic or regurgitant lesions, based on the color flow Doppler examination No previous study is available for comparison. Dr Connor Jean Baptiste MD FACC (Electronically Signed) Final Date: 13 August 2019 16:53 S
--- NOTE | 2019-08-13 23:29 | US_ITS ---
WS: [id number] ULTRASOUND THYROID TECHNIQUE: Ultrasound of the thyroid. CLINICAL INFORMATION: THyroid nodule COMPARISON: None. FINDINGS: Thyroid: Right and left thyroid lobes are normal in size and echotexture. Multiple cystic and solid b ilateral thyroid nodules. Approximately 6 nodules in the right and 4 nodules in the left Largest nodule right thyroid lobe measures 1.1 x 1.0 x 1.1 cm Largest left-sided thyroid nodule measures 1.1 x 0.6 x 0.9 cm Right thyroid lobe: 5.0 cm x 1.6 cm x 1.7 cm Left thyroid lobe: 4.8 cm x 1.4 cm x 1.2 cm. Isthmus: 0.4 mm. Cervical lymphadenopathy: None. US/US thyroid [id number] IMPRESSION: 1. Multiple bilateral thyroid nodules. 2. Largest nodule right thyroid lobe measures 1.1 x 1.0 x 1.1 cm 3. Largest left-sided thyroid nodule measures 1.1 x 0.6 x 0.9 cm 4. Recommend 12 month follow-up.
== END 2019-08-13 17:00 | disposition home or self-care (01) ==
LOC: ER 21:27 → MEDSURG 21:28
PROVIDERS: Admitting Provider Internal Medicine; Emergency Provider Family Medicine; Visit Provider Student in an Organized Health Care Education/Training Program
DX: R53.1 Weakness (principal); R55 Syncope and collapse; H53.8 Other visual disturbances; Z82.49 Family history of ischemic heart disease and other diseases of the circulatory system
CPT/HCPCS: 12345; 36415; 36416; 70450; 70496; 70498; 76536; 80048; 80053; 80061; 81001; 82962; 83036; 84439; 84443; 84484; 85025; 85378; 87077; 87086; 87186; 93005; 93306; 96372; 96374; 96375; 97110; 97162; 97165; 99283; 99285; G0378; J1200; J1650; J2765; J7030; Q9967